=== PATIENT | male | born 1990 | race Caucasian/White ===

== ENCOUNTER 2021-02-06 09:31 | Emergency (ER) | payer OTHER ==
[~2021-02-06] VITALS: Ht 190.5 cm; Wt 113.4 kg
[2021-02-06] MEDS ORDERED: PROAIR HFA8.5 GM INH ×2 (09:42→10:28)
[2021-02-06] MEDS ORDERED: ALBUTEROL2.5 MG/31 INH (10:28)
[2021-02-06] MEDS ORDERED: AMOXIL 875 MG875 M1 PO (10:28)
[2021-02-06] MEDS ORDERED: LIDOCAINE VISC100 ML SWISH&SPIT (10:28)
[2021-02-06 10:37] VITALS: BP 134/72
== END 2021-02-06 10:38 | disposition home or self-care (01) ==
LOC: M.ERS 09:31
DX: S00.512A Abrasion of oral cavity, initial encounter (principal); R06.02 Shortness of breath; J44.9 Chronic obstructive pulmonary disease, unspecified; F17.210 Nicotine dependence, cigarettes, uncomplicated; Z79.899 Other long term (current) drug therapy; X58.XXXA Exposure to other specified factors, initial encounter; Y93.89 Activity, other specified; Y92.89 Other specified places as the place of occurrence of the external cause; Y99.8 Other external cause status